=== PATIENT | female | born 1985 | race Caucasian/White ===

== ENCOUNTER 2017-03-02 21:32 | Outpatient (CLI) | payer OTHER ==
[~2017-03-02 21:32] MED LIST: CITRATE OF MAG296 ML PO; COLACE100 MG PO; ENDOCET 5-3251 EACH PO; KEFLEX500 MG PO; MOTRIN800 MG PO; NAPROSYN500 MG PO; NORCO 7.5/321 TABLET PO; NUVARING VAGIN1 EACH VG; PRENATAL MULTI1 EAC3 PO; PRILOSEC40 MG PO; ZOFRAN ODT4 MG PO; ZOFRAN4 MG PO
[2017-03-02 21:48] VITALS: BP 121/61
== END 2017-03-02 22:25 | disposition home or self-care (01) ==
LOC: LDRP-OP 21:32 → 2WEST 21:34 → LDRP-OP 05-07 11:19
DX: O42.913 Preterm premature rupture of membranes, unspecified as to length of time between rupture and onset of labor, third trimester (principal); Z3A.35 35 weeks gestation of pregnancy; Z87.891 Personal history of nicotine dependence
CPT/HCPCS: 59025; G0378

== ENCOUNTER 2017-03-25 01:12 | Inpatient (IN) | payer OTHER ==
[~2017-03-25] VITALS: Ht 170.2 cm; Wt 117.9 kg
[2017-03-25] VITALS (32 sets, daily range): BP systolic 96–142; BP diastolic 50–84
[2017-03-25] MEDS ORDERED: COLACE100 MG PO (01:54)
[2017-03-25] MEDS ORDERED: UNISOM SLEEP AI25 MG PO (02:15)
[2017-03-25] MEDS ORDERED: PROCTOFOAM-HC10 GM PR (02:16)
[2017-03-25 07:46] LABS: EOSINOPHIL (%) 0.1 % (0-5); HEMATOCRIT 33.4 % (36.0-46.0); IMMATURE GRANULOCYTE (%) 0.5 % (0.0-0.7); IMMATURE GRANULOCYTE COUNT 0.1 K/uL; INSTRUMENT ABS NEUTROPHIL CT 6.5 K/uL; LYMPHOCYTE COUNT 3.2 K/uL (1.0-2.8); MCH 27.9 PG (29.0-34.0); MCHC 32.9 G/DL (30.0-36.0); MCV 84.8 FL (83-99); MEAN PLAT.VOLUME 10.1 uM^3 (9.5-12.4); MONOCYTE (%) 5.4 % (3-12); MONOCYTE COUNT 0.6 K/uL (0-0.8); NEUTROPHIL (%) 62.8 % (45-76); NEUTROPHIL COUNT 6.5 K/uL (1.8-6.4); PLATELET COUNT 189 K/uL (156-360); RBC DIS.WIDTH-CV 13.7 % (11.8-14.6); RBC DIS.WIDTH-SD 42.4 % (39-53); RED BLOOD COUNT 3.94 M/uL (3.80-5.20); WHITE BLOOD COUNT 10.3 K/uL (4.1-10.2)
[2017-03-25] MEDS ORDERED: MOTRIN400 MG PO (21:55)
[2017-03-26 03:30] VITALS: BP 138/61
[2017-03-26 07:55] VITALS: BP 122/59
[2017-03-26 16:05] VITALS: BP 108/58
[2017-03-26 23:00] VITALS: BP 103/62
[2017-03-27 07:26] VITALS: BP 102/58
[2017-03-27] MEDS ORDERED: ZOLOFT25 MG PO (09:11)
== END 2017-03-27 14:15 | disposition home or self-care (01) | DRG 775 ==
LOC: LDRP-OP 01:12 → 2WEST 01:13 → LDRP-OP 05-07 00:16
PROVIDERS: Advanced Practice Midwife
PROC: 10907ZC Drainage of Amniotic Fluid, Therapeutic from Products of Conception, Via Natural or Artificial Opening (ICD-10-PCS; principal; 2017-03-25)
PROC: 10E0XZZ Delivery of Products of Conception, External Approach (ICD-10-PCS; principal; 2017-03-25)
PROC: 00HU33Z Insertion of Infusion Device into Spinal Canal, Percutaneous Approach (ICD-10-PCS; principal; 2017-03-25)
PROC: 3E0S3CZ (ICD-10-PCS; principal; 2017-03-25)
DX: O99.214 Obesity complicating childbirth (principal); F33.9 Major depressive disorder, recurrent, unspecified; O99.344 Other mental disorders complicating childbirth; O63.1 Prolonged second stage (of labor); E66.9 Obesity, unspecified; O69.1XX0 Labor and delivery complicated by cord around neck, with compression, not applicable or unspecified; Z3A.38 38 weeks gestation of pregnancy; Z37.0 Single live birth; F41.9 Anxiety disorder, unspecified; O22.43 Hemorrhoids in pregnancy, third trimester; F42.9 Obsessive-compulsive disorder, unspecified; O99.62 Diseases of the digestive system complicating childbirth; K21.9 Gastro-esophageal reflux disease without esophagitis; Z68.30 Body mass index [BMI] 30.0-30.9, adult
CPT/HCPCS: 85025; C1755; J0595; J1050; J2765; J3010; J7120